=== PATIENT | female | born 1990 | race African-American/Black ===

== ENCOUNTER 2024-08-16 18:23 | Emergency (ER) | payer OTHER ==
[~2024-08-16] VITALS: Ht 165.1 cm; Wt 70.0 kg
[2024-08-16 18:27] VITALS: RESP 18; O2SAT 96
[2024-08-16 19:24] LABS: CLARITY URINE CLOUDY (CLEAR); COLOR URINE DARK YELLOW (YELLOW); GLUCOSE URINE NEGATIVE (NEGATIVE); KETONES URINE 2+ (NEGATIVE); LEUKOCYTE ESTERASE URINE TRACE (NEGATIVE); NITRITE URINE NEGATIVE (NEGATIVE); OCCULT BLOOD URINE NEGATIVE (NEGATIVE); PROTEIN URINE 2+ (NEGATIVE); SPECIFIC GRAVITY URINE 1.032 (1.005-1.030)
[2024-08-16] MEDS: CEFTRIAXONE SODIUM 500MG VIAL IM ONE (19:28)
[2024-08-16 19:40] LABS: BACTERIA URINE 2+; RBC URINE 0-2 /hpf (0-2); SQUAMOUS EPITHELIAL CELL URINE 2+ /lpf (RARE/1+)
[2024-08-16 20:00] VITALS: BP 131/76; PULSE 83; TEMP 36.94740
[2024-08-16] MEDS ORDERED: DOXY100C5 MT (20:17)
[2024-08-20 04:07] LABS: CHLAMYDIA TRACHOMATIS NAA Negative (Negative); NEISSERIA GONORRHOEAE NAA Negative (Negative)
== END 2024-08-16 20:20 | disposition home or self-care (01) ==
LOC: ER 18:23
DX: Z11.3 Encounter for screening for infections with a predominantly sexual mode of transmission (principal); F12.90 Cannabis use, unspecified, uncomplicated
CPT/HCPCS: 87491; 87591; 81003; 81025; 96372; 99283; J0696; Z7610 ×3

== ENCOUNTER 2024-10-08 19:45 | Emergency (ER) | payer MEDICAID ==
[~2024-10-08] VITALS: Ht 160 cm; Wt 62.0 kg
[~2024-10-08 19:45] MED LIST: DOXY100C5 MT
[2024-10-08 20:05] VITALS: O2SAT 98
[2024-10-08 20:22] VITALS: BP 152/86; PULSE 76; RESP 16; TEMP 98.4; O2SAT 100
[2024-10-08] MEDS ORDERED: DOXY100C74 MT (22:10)
[2024-10-08] MEDS: CEFTRIAXONE SODIUM 500MG VIAL IM ONE (23:07)
[2024-10-08] MEDS: DOXYCYCLINE HYCLATE 100MG CAPSULE PO ONE (23:07)
== END 2024-10-08 23:09 | disposition home or self-care (01) ==
LOC: ER 19:45
DX: N89.8 Other specified noninflammatory disorders of vagina (principal); F12.90 Cannabis use, unspecified, uncomplicated; Z11.3 Encounter for screening for infections with a predominantly sexual mode of transmission
CPT/HCPCS: 99283; 96372; J0696

== ENCOUNTER 2025-06-07 22:34 | Emergency (ER) | payer MEDICAID ==
[~2025-06-07] VITALS: Ht 157.5 cm; Wt 63.0 kg
[~2025-06-07 22:34] MED LIST changes: +DOXY-461 MT
[2025-06-07 22:39] VITALS: O2SAT 97
[2025-06-07 22:57] VITALS: RESP 18; O2SAT 98
[2025-06-08 00:18] LABS: CLARITY URINE CLOUDY (CLEAR); COLOR URINE YELLOW (YELLOW); GLUCOSE URINE NEGATIVE (NEGATIVE); KETONES URINE TRACE (NEGATIVE); LEUKOCYTE ESTERASE URINE NEGATIVE (NEGATIVE); NITRITE URINE NEGATIVE (NEGATIVE); OCCULT BLOOD URINE NEGATIVE (NEGATIVE); PH URINE 7.0 (4.5-8.0); PROTEIN URINE TRACE (NEGATIVE); SPECIFIC GRAVITY URINE 1.023 (1.005-1.030); UROBILINOGEN URINE 1.0 E.U./dL (0.2-1.0)
[2025-06-08] MEDS ORDERED: DOXY-461 MT (01:15)
[2025-06-08 01:22] LABS: SQUAMOUS EPITHELIAL CELL URINE 1+ /lpf (RARE/1+)
[2025-06-08 01:25] LABS: WBC URINE 0-2 /hpf (0-2)
[2025-06-08 01:26] LABS: BACTERIA URINE 1+; RBC URINE 0-2 /hpf (0-2)
[2025-06-08 01:34] VITALS: BP 167/117; PULSE 78; TEMP 36.6
[2025-06-08] MEDS: CEFTRIAXONE SODIUM 500MG VIAL IM ONE (01:47)
[2025-06-08] MEDS: LIDOCAINE HCL 1% 20ML VIAL INFIL ONE (01:48)
== END 2025-06-08 01:55 | disposition home or self-care (01) ==
LOC: ER 22:34
DX: N89.8 Other specified noninflammatory disorders of vagina (principal); Z20.2 Contact with and (suspected) exposure to infections with a predominantly sexual mode of transmission; J45.909 Unspecified asthma, uncomplicated; I10 Essential (primary) hypertension; F12.90 Cannabis use, unspecified, uncomplicated; Z79.899 Other long term (current) drug therapy
CPT/HCPCS: 99283; 81003; 81025; 96372; J0696; J2003